=== PATIENT | female | born 1965 | race African-American/Black ===

== ENCOUNTER 2019-03-26 06:27 | Inpatient (IN) | payer OTHER, MEDICAID ==
[~2019-03-26] VITALS: Ht 165.1 cm; Wt 80.7 kg
[2019-03-26] MEDS ORDERED: KETOROLAC 30MG/ML VIAL IV STA (08:02)
[2019-03-26] MEDS ORDERED: MORPHINE SULFATE 4 MG/ML CPJ (NOT FOR IM USE) IV STA (08:02)
[2019-03-26 08:32] LABS: CHLORIDE 111 mEq/L (98-107)
[2019-03-26 08:45] LABS: BASOPHILS % 0.6 % (0.0-2.0); EOSINOPHILS % 0.5 % (0.0-5.0); HEMATOCRIT. 38.3 % (36.0-48.0); HEMOGLOBIN. 12.5 g/dL (12.0-16.0); LYMPHOCYTES % 7.8 % (20.0-50.0); MEAN CORPUSCULAR VOLUME 79.6 fL (81.0-99.0); MONOCYTES % 4.6 % (2.0-8.0); NEUTROPHILS % 86.5 % (40.0-76.0); PLATELET 264 x1000/uL (130-400); RED BLOOD CELL COUNT 4.81 mill/uL (4.2-5.4); RED CELL DISTRIBUTION WIDTH 18.2 % (11.6-14.6)
[2019-03-26] MEDS ORDERED: ASPIRIN 325MG EC TABLET PO ONE (09:15)
[2019-03-26] MEDS: METOPROLOL TARTRATE 25MG TABLET PO SCH ×2 (16:26→22:28)
[2019-03-26 19:18] LABS: CREATINE KINASE MB FRACTION 2.7 ng/mL (0.5-3.6)
[2019-03-26] MEDS ORDERED: HYDROCODONE/ACETAMINOPHEN 5/325MG TABLET PO PRN (19:45)
[2019-03-26] MEDS ORDERED: CLONIDINE 0.1MG TABLET PO PRN (19:45)
[2019-03-26] MEDS ORDERED: ONDANSETRON HCL 4MG/2ML INJ IV PRN (19:45)
[2019-03-26] MEDS ORDERED: POTASSIUM CHLORIDE 20MEQ TABLET SR PO SCH (19:45)
[2019-03-26] MEDS ORDERED: DOCUSATE SODIUM 100MG CAPSULE PO PRN (19:45)
[2019-03-26] MEDS ORDERED: LORAZEPAM 0.5MG TABLET PO PRN (19:45)
[2019-03-26] MEDS ORDERED: ACETAMINOPHEN 325MG TABLET PO PRN (19:45)
[2019-03-26 22:00] VITALS: BP 109/70
[2019-03-26] MEDS: IPRATROPIUM/ALBUTEROL 0.5-3(2.5)MG/3ML NEB HHN PRN (22:03)
[2019-03-26] MEDS: GUAIFENESIN 200MG/10ML SUGAR FREE UDC PO PRN (22:27)
[2019-03-27] VITALS (7 sets, daily range): BP systolic 112–130; BP diastolic 60–87
[2019-03-27] MEDS ORDERED: FLUT1BLS12 IH (00:30)
[2019-03-27] MEDS ORDERED: FURO80TA3 PO (00:30)
[2019-03-27] MEDS ORDERED: LISI10TA5 PO (00:30)
[2019-03-27] MEDS ORDERED: ATOR40TA70 PO (00:30)
[2019-03-27] MEDS ORDERED: WARF-53 PO (00:30)
[2019-03-27] MEDS ORDERED: CARV6.2548 PO (00:30)
[2019-03-27] MEDS: GUAIFENESIN 200MG/10ML SUGAR FREE UDC PO PRN (06:00)
[2019-03-27 06:58] LABS: INR 1.9; PROTHROMBIN TIME 19.3 sec (9.6-11.0)
[2019-03-27 07:00] LABS: CHLORIDE 110 mEq/L (98-107)
[2019-03-27 07:07] LABS: BASOPHILS % 0.6 % (0.0-2.0); EOSINOPHILS % 0.1 % (0.0-5.0); HEMATOCRIT. 37.1 % (36.0-48.0); HEMOGLOBIN. 12.2 g/dL (12.0-16.0); LYMPHOCYTES % 7.1 % (20.0-50.0); MEAN CORPUSCULAR HEMOGLOBIN 26.1 pg (28.0-32.0); MEAN CORPUSCULAR VOLUME 79.4 fL (81.0-99.0); MEAN PLATELET VOLUME 9.3 fl (7.4-10.4); MONOCYTES % 4.5 % (2.0-8.0); NEUTROPHILS % 87.7 % (40.0-76.0); PLATELET 250 x1000/uL (130-400); RED BLOOD CELL COUNT 4.68 mill/uL (4.2-5.4); RED CELL DISTRIBUTION WIDTH 18.4 % (11.6-14.6)
[2019-03-27 08:14] LABS: *AMPHETAMINES SCREEN URINE NEGATIVE (NEGATIVE)
[2019-03-27 08:15] LABS: *BARBITURATES SCREEN URINE NEGATIVE (NEGATIVE); *BENZODIAZEPINES SCREEN URINE NEGATIVE (NEGATIVE); *COCAINE SCREEN URINE NEGATIVE (NEGATIVE); METHADONE URINE SCREEN NEGATIVE (NEGATIVE); OPIATES URINE SCREEN PRESUMTIVE POSITIVE (NEGATIVE)
[2019-03-27 08:16] LABS: CANNABINOID URINE SCREEN NEGATIVE (NEGATIVE); PHENCYCLIDINE URINE SCREEN NEGATIVE (NEGATIVE)
[2019-03-27] MEDS: METOPROLOL TARTRATE 25MG TABLET PO SCH (09:18)
[2019-03-27] MEDS: FUROSEMIDE 40MG TABLET PO SCH (11:55)
[2019-03-27] MEDS: IPRATROPIUM/ALBUTEROL 0.5-3(2.5)MG/3ML NEB HHN PRN (13:30)
[2019-03-27] MEDS ORDERED: WARFARIN SODIUM 7.5MG TABLET PO NR (18:00)
[2019-03-27] MEDS ORDERED: ATORVASTATIN CALCIUM 40MG TABLET PO SCH (21:00)
[2019-03-27] MEDS: CARVEDILOL 6.25 MG TABLET PO SCH (21:37)
[2019-03-28] VITALS: BP 100/58
[2019-03-28 04:00] VITALS: BP 109/74
[2019-03-28 06:44] LABS: INR 1.7
[2019-03-28] MEDS ORDERED: FUROSEMIDE 40MG TABLET PO SCH (09:00)
[2019-03-28] MEDS ORDERED: LISINOPRIL 10MG TABLET PO SCH (09:00)
[2019-03-28] MEDS: FUROSEMIDE 40MG TABLET PO SCH (11:04)
[2019-03-28] MEDS: CARVEDILOL 6.25 MG TABLET PO SCH (11:04)
[2019-03-28] MEDS ORDERED: AMIO100T4 PO (13:18)
[2019-03-28 14:37] VITALS: BP 111/87
[2019-03-28] MEDS ORDERED: AMIODARONE HCL 200 MG TABLET PO SCH (17:50)
[2019-03-28] MEDS ORDERED: WARFARIN SODIUM 5MG TABLET PO NR (18:00)
== END 2019-03-28 15:35 | disposition home or self-care (01) | DRG 189 ==
LOC: ER 06:27 → 6WST 10:30 → EDBEDREQTM 10:44 → EDBEDREQ 10:44 → ENRESERV 20:00
PROVIDERS: ADMIT Internal Medicine; ATTEND Internal Medicine
DX: J96.20 Acute and chronic respiratory failure, unspecified whether with hypoxia or hypercapnia (principal); I47.2 Ventricular tachycardia; I42.9 Cardiomyopathy, unspecified; R07.89 Other chest pain; E87.6 Hypokalemia; I11.0 Hypertensive heart disease with heart failure; I25.2 Old myocardial infarction; I50.9 Heart failure, unspecified; J44.9 Chronic obstructive pulmonary disease, unspecified; Z87.891 Personal history of nicotine dependence; Z90.710 Acquired absence of both cervix and uterus; Z95.810 Presence of automatic (implantable) cardiac defibrillator; M25.512 Pain in left shoulder
CPT/HCPCS: 36415; 71045; 80048; 80053; 80061; 80305; 82550; 82553; 83036; 83880; 84484; 85025; 93005; 93306; 94640; 96374; 96375; 99291; J1885; J2270; J7620

== ENCOUNTER 2019-05-17 04:51 | Inpatient (IN) | payer OTHER, MEDICAID ==
[~2019-05-17] VITALS: Ht 167.6 cm; Wt 82.6 kg
[~2019-05-17 04:51] MED LIST: AMIO100T4 PO; ATOR40TA70 PO; CARV6.2548 PO; FLUT1BLS12 IH; FURO80TA3 PO; LISI10TA5 PO; WARF-53 PO
[2019-05-17] MEDS ORDERED: KETOROLAC 30MG/ML VIAL IV STA (06:51)
[2019-05-17] MEDS ORDERED: METOCLOPRAMIDE HCL 10MG/2ML VIAL IV ONE (07:00)
[2019-05-17 07:25] LABS: BASOPHILS % 0.8 % (0.0-2.0); EOSINOPHILS % 0.8 % (0.0-5.0); HEMATOCRIT. 35.1 % (36.0-48.0); HEMOGLOBIN. 11.4 g/dL (12.0-16.0); LYMPHOCYTES % 15.4 % (20.0-50.0); MEAN CORPUSCULAR VOLUME 77.2 fL (81.0-99.0); MEAN PLATELET VOLUME 8.3 fl (7.4-10.4); MONOCYTES % 4.9 % (2.0-8.0); NEUTROPHILS % 78.1 % (40.0-76.0); PLATELET 391 x1000/uL (130-400); RED BLOOD CELL COUNT 4.55 mill/uL (4.2-5.4); RED CELL DISTRIBUTION WIDTH 19.1 % (11.6-14.6)
[2019-05-17 07:29] LABS: CHLORIDE 106 mEq/L (98-107)
[2019-05-17] MEDS ORDERED: FUROSEMIDE 40MG/4ML VIAL IVP ONE (08:00)
[2019-05-17] MEDS ORDERED: KETOROLAC 30MG/ML VIAL IV PRN (11:30)
[2019-05-17] MEDS ORDERED: ONDANSETRON HCL 4MG/2ML INJ IV PRN (11:30)
[2019-05-17] MEDS ORDERED: ACETAMINOPHEN 325MG TABLET PO PRN (11:30)
[2019-05-17] MEDS: POTASSIUM CHLORIDE 20MEQ TABLET SR PO SCH (11:59)
[2019-05-17] MEDS: SPIRONOLACTONE 25MG TABLET PO SCH (12:03)
[2019-05-17] MEDS ORDERED: AMIODARONE HCL 200 MG TABLET PO NR (17:00)
[2019-05-17 23:20] VITALS: BP 117/89
[2019-05-17] MEDS ORDERED: DIATR MEGLU/DIATRIZOATE SOLN 30ML PO SCH (23:30)
[2019-05-17] MEDS: CARVEDILOL 6.25 MG TABLET PO SCH (23:30)
[2019-05-17] MEDS: FAMOTIDINE 20MG TABLET PO SCH (23:58)
[2019-05-18 04:00] VITALS: BP 113/74
[2019-05-18] MEDS: AMIODARONE HCL 200 MG TABLET PO SCH ×2 (06:18→18:27)
[2019-05-18 08:00] VITALS: BP 125/87
[2019-05-18 08:11] LABS: BASOPHILS % 0.9 % (0.0-2.0); EOSINOPHILS % 0.9 % (0.0-5.0); HEMATOCRIT. 37.4 % (36.0-48.0); LYMPHOCYTES % 18.2 % (20.0-50.0); MEAN CORPUSCULAR HEMOGLOBIN 24.8 pg (28.0-32.0); MEAN CORPUSCULAR VOLUME 77.5 fL (81.0-99.0); MEAN PLATELET VOLUME 8.5 fl (7.4-10.4); MONOCYTES % 5.3 % (2.0-8.0); NEUTROPHILS % 74.7 % (40.0-76.0); PLATELET 438 x1000/uL (130-400); RED BLOOD CELL COUNT 4.82 mill/uL (4.2-5.4); RED CELL DISTRIBUTION WIDTH 19.3 % (11.6-14.6)
[2019-05-18] MEDS: FUROSEMIDE 40MG/4ML VIAL IVP SCH ×2 (09:09→12:01)
[2019-05-18] MEDS: POTASSIUM CHLORIDE 20MEQ TABLET SR PO SCH (09:09)
[2019-05-18] MEDS: LOSARTAN POTASSIUM 50 MG TABLET PO SCH (09:11)
[2019-05-18] MEDS: CARVEDILOL 6.25 MG TABLET PO SCH ×2 (09:11→20:46)
[2019-05-18] MEDS: SPIRONOLACTONE 25MG TABLET PO SCH (09:11)
[2019-05-18] MEDS: ENOXAPARIN 40MG/0.4ML SYR SUBCUT SCH (09:12)
[2019-05-18 12:00] VITALS: BP 109/72
[2019-05-18] MEDS ORDERED: IOHEXOL-300 100 ML BOTTLE ONE (14:16)
[2019-05-18 16:00] VITALS: BP 118/91
[2019-05-18 20:00] VITALS: BP 130/79
[2019-05-18] MEDS: FAMOTIDINE 20MG TABLET PO SCH (20:46)
[2019-05-18 23:31] VITALS: BP 109/78
[2019-05-19 04:00] VITALS: BP 133/88
[2019-05-19 07:29] LABS: BASOPHILS % 1.4 % (0.0-2.0); HEMATOCRIT. 33.7 % (36.0-48.0); HEMOGLOBIN. 11.2 g/dL (12.0-16.0); LYMPHOCYTES % 18.3 % (20.0-50.0); MEAN CORPUSCULAR HEMOGLOBIN 25.4 pg (28.0-32.0); MEAN CORPUSCULAR VOLUME 76.7 fL (81.0-99.0); MEAN PLATELET VOLUME 8.3 fl (7.4-10.4); MONOCYTES % 6.1 % (2.0-8.0); NEUTROPHILS % 72.2 % (40.0-76.0); PLATELET 396 x1000/uL (130-400); RED CELL DISTRIBUTION WIDTH 19.1 % (11.6-14.6)
[2019-05-19 08:00] VITALS: BP 120/84
[2019-05-19] MEDS: AMIODARONE HCL 200 MG TABLET PO SCH (08:51)
[2019-05-19] MEDS: CARVEDILOL 6.25 MG TABLET PO SCH (08:51)
[2019-05-19] MEDS: POTASSIUM CHLORIDE 20MEQ TABLET SR PO SCH (08:51)
[2019-05-19] MEDS: SPIRONOLACTONE 25MG TABLET PO SCH (08:51)
[2019-05-19] MEDS: LOSARTAN POTASSIUM 50 MG TABLET PO SCH (08:52)
[2019-05-19] MEDS: FUROSEMIDE 40MG/4ML VIAL IVP SCH (08:52)
[2019-05-19] MEDS: ENOXAPARIN 40MG/0.4ML SYR SUBCUT SCH (08:52)
[2019-05-19 12:00] VITALS: BP 103/69
[2019-05-19] MEDS ORDERED: DOCU250C14 MT (12:06)
[2019-05-19 13:05] LABS: BG BASE EXCESS 1.9 mmol/L (-2.0-2.0); BG CARBOXYHEMOGLOBIN 0.2 % (0.5-1.5); BG DEOXYHEMOGLOBIN 3.3 % (0.0-5.0); BG HCO3 ACT 24.6 mmol/L (22.0-26.0); BG METHEMOGLOBIN 0.1 % (0.0-1.5); BG OXYGEN SATURATION 96.7 % (92.0-98.5); BG OXYHEMOGLOBIN 96.4 % (94.0-97.0); BG PCO2 32.3 mmHg (35.0-45.0); BG PO2 90.8 mmHg (75.0-100.0); BG SAMPLE SITE RIGHT RADIAL; BG VENT MODE ROOM AIR
[2019-05-19 14:09] VITALS: BP 103/69
== END 2019-05-19 15:30 | disposition home or self-care (01) | DRG 291 ==
LOC: ER 04:51 → 5WST 11:15 → ENRESERV 20:15
PROVIDERS: ADMIT Internal Medicine; ATTEND Internal Medicine
DX: I11.0 Hypertensive heart disease with heart failure (principal); E43 Unspecified severe protein-calorie malnutrition; I47.2 Ventricular tachycardia; I50.23 Acute on chronic systolic (congestive) heart failure; I42.9 Cardiomyopathy, unspecified; J45.909 Unspecified asthma, uncomplicated; I27.20 Pulmonary hypertension, unspecified; I07.1 Rheumatic tricuspid insufficiency; R07.89 Other chest pain; K76.1 Chronic passive congestion of liver; D64.9 Anemia, unspecified; D25.9 Leiomyoma of uterus, unspecified; Z95.0 Presence of cardiac pacemaker; Z68.29 Body mass index [BMI] 29.0-29.9, adult
CPT/HCPCS: 36415; 36600; 71045; 74177; 80048; 80053; 82375; 82805; 83880; 84484; 85025; 93005; 99285; J1650; J1885; J1940; J2405; J2765; Q9963; Q9967